=== PATIENT | male | born 1990 | race Caucasian/White ===

== ENCOUNTER 2024-04-02 16:09 | Emergency (ER) | payer MEDICAID ==
[~2024-04-02] VITALS: Ht 182.9 cm; Wt 85.0 kg
[2024-04-02 16:12] VITALS: BP 129/86; PULSE 82; RESP 16; TEMP 36.8; O2SAT 100; O2SAT 98
[2024-04-02 17:48] LABS: BASOPHILS % 0.2 % (0.0-2.0); HEMATOCRIT. 40.1 % (42.0-52.0); HEMOGLOBIN. 13.6 g/dL (14.0-18.0); LYMPHOCYTES % 29.4 % (20.0-50.0); MEAN CORPUSCULAR HEMOGLOBIN 30.8 pg (28.0-32.0); MEAN CORPUSCULAR HGB CONC 33.8 g/dL (31.0-37.0); MEAN CORPUSCULAR VOLUME 90.9 fL (80.0-94.0); MEAN PLATELET VOLUME 6.9 fl (7.4-10.4); MONOCYTES % 7.8 % (2.0-8.0); NEUTROPHILS % 61.6 % (40.0-76.0); PLATELET 333 x1000/uL (130-400); RED BLOOD CELL COUNT 4.41 mill/uL (4.7-6.1); RED CELL DISTRIBUTION WIDTH 13.6 % (11.6-14.6); WHITE BLOOD COUNT 5.8 x1000/uL (4.5-11.0)
[2024-04-02 17:56] LABS: CARBON DIOXIDE 28 mEq/L (21-32); CHLORIDE 102 mEq/L (98-107); POTASSIUM 3.7 mEq/L (3.5-5.1); SODIUM 137 mEq/L (136-145)
[2024-04-02 17:57] LABS: CALCIUM 9.6 mg/dL (8.7-10.4)
[2024-04-02 18:02] LABS: GLUCOSE 100 mg/dL (70-105); UREA NITROGEN BLOOD 10 mg/dL (9-23)
== END 2024-04-02 17:18 | disposition left against medical advice (07) ==
LOC: ER 16:09
DX: M54.50 Low back pain, unspecified (principal); Z53.21 Procedure and treatment not carried out due to patient leaving prior to being seen by health care provider; Z98.890 Other specified postprocedural states
CPT/HCPCS: 36415; 80048; 85025; 93005